=== PATIENT | male | born 1975 | race Caucasian/White ===

== ENCOUNTER 2017-01-19 17:04 | Emergency (ER) | payer MEDICAID, SELFPAY ==
[~2017-01-19] VITALS: Ht 170.2 cm; Wt 73.6 kg
[2017-01-19 17:09] VITALS: BP 132/90
== END 2017-01-19 17:45 | disposition home or self-care (01) ==
LOC: ED 17:39
DX: S56.511A Strain of other extensor muscle, fascia and tendon at forearm level, right arm, initial encounter (principal); M25.532 Pain in left wrist; Z88.5 Allergy status to narcotic agent; Z88.6 Allergy status to analgesic agent; W18.30XA Fall on same level, unspecified, initial encounter; Y93.89 Activity, other specified; Y92.89 Other specified places as the place of occurrence of the external cause; Y99.8 Other external cause status
CPT/HCPCS: 29125

== ENCOUNTER 2017-04-18 12:54 | Emergency (ER) | payer MEDICAID ==
[~2017-04-18] VITALS: Ht 170.2 cm; Wt 75.2 kg
[2017-04-18 13:09] VITALS: BP 148/90
[2017-04-18] MEDS ORDERED: CARBAMIDE PEROXIDE EAR DROPS 6.5%, 15ML EACH EAR ONE (13:30)
[2017-04-18] MEDS ORDERED: CARBAMIDE PEROXIDE EAR DROPS 6.5%, 15ML ONE (13:38)
[2017-04-18] MEDS ORDERED: KETOROLAC 30 MG/1 ML IM ONE (14:30)
[2017-04-18] MEDS ORDERED: KETOROLAC 30 MG/1 ML ONE (14:30)
== END 2017-04-18 14:44 | disposition home or self-care (01) ==
LOC: ED 14:38
DX: S00.03XA Contusion of scalp, initial encounter (principal); H61.23 Impacted cerumen, bilateral; I25.2 Old myocardial infarction; Z87.891 Personal history of nicotine dependence; W22.8XXA Striking against or struck by other objects, initial encounter; Y93.89 Activity, other specified; Y99.8 Other external cause status; Y92.099 Unspecified place in other non-institutional residence as the place of occurrence of the external cause
CPT/HCPCS: 69209; 70450; 96372; 99284; J1885